=== PATIENT | female | born 1980 | race Caucasian/White ===

== ENCOUNTER 2020-04-05 23:45 | Emergency (ER) | payer OTHER ==
[~2020-04-05] VITALS: Ht 165.1 cm; Wt 100.2 kg
[~2020-04-05 23:45] MED LIST: COLACE100 MG PO
[2020-04-05] MEDS ORDERED: AJOVY225 MG/1.5 SUBQ (23:56)
[2020-04-05] MEDS ORDERED: VITAMIN D310 MC2 PO (23:57)
[2020-04-05] MEDS ORDERED: NORVASC10 MG PO (23:58)
[2020-04-05] MEDS ORDERED: LEVO-T50 MCG PO (23:58)
[2020-04-05] MEDS ORDERED: SUPER THERAVIT1 EACH PO (23:58)
[2020-04-05] MEDS ORDERED: MAGNESIUM250 M1 PO (23:58)
[2020-04-05] MEDS ORDERED: AMBIEN 10 MG TA10 MG PO (23:59)
[2020-04-05] MEDS ORDERED: BENADRYL25 MG PO (23:59)
[2020-04-06] MEDS ORDERED: CLONAZEPAM 0.50.5 M1 PO
[2020-04-06] MEDS ORDERED: PEPCID20 MG PO (00:01)
[2020-04-06] MEDS ORDERED: PROAIR HFA8.5 GM INH (00:01)
[2020-04-06] MEDS ORDERED: SUMATRIPTAN-NA1 EACH PO (00:02)
[2020-04-06] MEDS ORDERED: ZOFRAN4 MG PO (00:02)
[2020-04-06 00:20] VITALS: BP 122/74
--- NOTE | 2020-04-06 08:38 | EKG ---
[facility] [place] [address] ELECTROCARDIOGRAM REPORT Name: TRAV CRISTINA Room #: [facility]#: [id number] Admission: 04/05/20 Attend Phys: Discharge: 04/06/20 Date of : 76 Report #: [id number] THIS REPORT FOR: cc: [facility] - Clinic physician unknown [facility] - Clinic physician unknown Dae Hendricks MD [facility] ~ THIS REPORT FOR: //name// [facility] ED Test Date: 2020-04-05 Test Time: 23:54:34 Pat Name: TRAV CRISTINA Department: Room: Gender: F 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
== END 2020-04-06 00:20 | disposition home or self-care (01) ==
LOC: ER 23:45
DX: U07.1 COVID-19 (principal); G43.909 Migraine, unspecified, not intractable, without status migrainosus; J45.909 Unspecified asthma, uncomplicated; I10 Essential (primary) hypertension; Z87.891 Personal history of nicotine dependence; Z88.5 Allergy status to narcotic agent; Z88.6 Allergy status to analgesic agent; Z88.2 Allergy status to sulfonamides; Z79.899 Other long term (current) drug therapy; Z87.01 Personal history of pneumonia (recurrent); Z98.890 Other specified postprocedural states